=== PATIENT | male | born 1995 | race American Indian/Alaskan Native ===

== ENCOUNTER 2018-06-12 19:09 | Emergency (ER) | payer MEDICAID ==
[2018-06-12] MEDS ORDERED: hydrOXYzine HCl 25 MG Tab PO ONE (20:41)
--- NOTE | 2018-06-12 20:52 | EDM.PDOC ---
ED HPI GENERAL MEDICAL PROBLEM - General Chief Complaint: General Stated Complaint: GROGGINESS,DECREASED CIRCULATION Time Seen by Provider: 06/12/18 20:25 Source of Information: Reports: Patient History Limitations: Reports: Other (incomplete old records) - History of Present Illness INITIAL COMMENTS - FREE TEXT/NARRATIVE: 22 yo male here with a chief complaint of intermittent hand and feet numbness. The numbness is inconsistent in what precipitates it. It can go back and forth from one to the other. Is worse in his hands than in his feet. Feels tired a lot. Feels anxious. Snores a little, but apnea is not noted by a roommate who is here now. FHx + for sleep apnea and AODM. Sx's for many months, not worse. Was to the clinic in [place] earlier today and had some 'blood work' done. He was told the results would start coming in tomorrow. He is not worse today, his mother decided he should come to the ER at this time. Onset: Unknown/Unsure (months ago) Duration: Waxing/Waning Location: Reports: Upper Extremity, Left, Upper Extremity, Right, Lower Extremity, Left, Lower Extremity, Right Quality: Reports: Other (tingling intermittently) Severity: Moderate Improves with: Reports: Other (unknown) Worsens with: Reports: Other (nothing predictable, does not wake up with it, cold exposure does not make it worse. Working with his hands does not make it worse. ) Context: Reports: Other (See HPI) Associated Symptoms: Reports: No Other Symptoms. Denies: Fever/Chills, Rash Treatments PHOTOGRAPHER NEWS: Reports: Other (see below) (none) Denies Pain Score (Numeric/FACES): 0 - Related Data Allergies Allergy/AdvReac Type Severity Reaction Status Date / Time No Known Allergies Allergy Verified 06/12/18 19:51 Home Meds: Home Meds Albuterol [Proventil HFA] 2 puff INH Q4H PRN 06/12/18 [History] hydrOXYzine HCl [Atarax] 25 - 50 mg PO TID PRN #20 tablet 06/12/18 [Rx] Past Medical History Cardiovascular History: Reports: Hypertension Respiratory History: Reports: Asthma - Past Surgical History HEENT Surgical History: Reports: Tonsillectomy Social & Family History - Tobacco Use Smoking Status *Q: Former Smoker Years of Tobacco use: 3 Used Tobacco, but Quit: Yes Month/Year Tobacco Last Used: August 2017 Second Hand Smoke Exposure: No - Caffeine Use Caffeine Use: Reports: Coffee, Soda, Tea - Alcohol Use Days Per Week of Alcohol Use: 0 - Recreational Drug Use Recreational Drug Use: No ED ROS GENERAL - Review of Systems Review Of Systems: See Below Constitutional: Reports: Fatigue (mild) HEENT: Reports: No Symptoms Respiratory: Reports: No Symptoms Cardiovascular: Reports: Palpitations (at times) Endocrine: Reports: No Symptoms GI/Abdominal: Reports: No Symptoms : Reports: No Symptoms Musculoskeletal: Reports: No Symptoms Skin: Reports: No Symptoms Neurological: Reports: Tingling (extremities) Psychiatric: Reports: Anxiety ED EXAM, GENERAL - Physical Exam Exam: See Below Exam Limited By: No Limitations General Appearance: Alert, WD/WN, No Apparent Distress, Obese Eye Exam: Bilateral Eye: Normal Inspection Ears: Normal External Exam, Normal Canal, Hearing Grossly Normal Ear Exam: Bilateral Ear: Auricle Normal, Canal Normal Nose: Normal Inspection, No Blood Throat/Mouth: Normal Inspection, Normal Lips, Normal Oropharynx, Normal Voice, No Airway Compromise Head: Atraumatic, Normocephalic Neck: Normal Inspection, Supple, Non-Tender Respiratory/Chest: No Respiratory Distress, Lungs Clear, Normal Breath Sounds, No Accessory Muscle Use Cardiovascular: Regular Rate, Rhythm, No Edema GI/Abdominal: Normal Bowel Sounds, Soft, Non-Tender, No Distention Back Exam: Normal Inspection, CVA Tenderness (R), CVA Tenderness (L) Extremities: Normal Inspection, Normal Range of Motion, Non-Tender, No Pedal Edema Neurological: Alert, Oriented, CN II-XII Intact, Normal Cognition, No Motor/ Sensory Deficits, Other (Negative Tinnel's and Phalen's tests.) Psychiatric: Normal Affect, Normal Mood Skin Exam: Warm, Dry, Intact, Normal Color, No Rash Lymphatic: No Adenopathy Course - Vital Signs Text/Narrative:: BP with a large cuff 133/82, fingerstick glc 89 Last Recorded V/S: Last Vital Signs Temp 37.1 C 06/12/18 20:00 Pulse 87 06/12/18 20:00 Resp 16 06/12/18 20:00 BP 167/83 H 06/12/18 20:00 Pulse Ox 97 01/17/19 20:00 - Orders/Labs/Meds Meds: Medications Discontinued Medications Generic Name Dose Route Start Last Admin Trade Name Freq PRN Reason Stop Dose Admin Hydroxyzine HCl 50 mg 06/12/18 20:41 Atarax PO 06/12/18 20:42 ONETIME ONE Departure - Departure Time of Disposition: 20:57 Disposition: Home, Self-Care 01 Condition: Good Clinical Impression: Anxiety, Somatic complaints, multiple - Discharge Information *PRESCRIPTION DRUG MONITORING PROGRAM REVIEWED*: No *COPY OF PRESCRIPTION DRUG MONITORING REPORT IN PATIENT ARUN: No Prescriptions: hydrOXYzine HCl [Atarax] 25 - 50 mg PO TID PRN #20 tablet PRN Reason: Anxiety Referrals: PCP,None [Primary Care Provider] - Additional Instructions: Take hydroxyzine as needed for anxiety. F/U tomorrow on the outstanding tests from [facility]. F/U with your doctor for assessment if an answer is not found in these tests.
== END 2018-06-12 21:15 | disposition home or self-care (01) ==
LOC: JP.ED 19:09
DX: F41.9 Anxiety disorder, unspecified (principal); R20.0 Anesthesia of skin; J45.909 Unspecified asthma, uncomplicated; Z79.899 Other long term (current) drug therapy; Z87.891 Personal history of nicotine dependence
CPT/HCPCS: 82962; 99284; A9270